=== PATIENT | male | born 1995 | race Two or more races ===

== ENCOUNTER → 2020-10-27 | Emergency (ER) | payer OTHER ==
[~2020-10-27] VITALS: Ht 170.2 cm; Wt 72.6 kg
== END | disposition designated cancer center or children's hospital (05) ==
LOC: ER 04:40 → EDBD 04:40 → ER 06:12
DX: S02.2XXA Fracture of nasal bones, initial encounter for closed fracture (principal); S01.82XA Laceration with foreign body of other part of head, initial encounter; Y08.89XA Assault by other specified means, initial encounter; Y93.89 Activity, other specified; Y92.89 Other specified places as the place of occurrence of the external cause; Y99.8 Other external cause status